=== PATIENT | female | born 1975 | race Caucasian/White ===

== ENCOUNTER 2017-10-29 09:15 | Emergency (ER) | payer BC ==
[2017-10-29] MEDS ORDERED: Sodium Chloride 0.9% 2.5 ML Syringe FLUSH PRN (09:17)
[2017-10-29] MEDS ORDERED: Sodium Chloride 0.9% 10 ML Syringe FLUSH PRN (09:17)
--- NOTE | 2017-10-29 09:26 | EDM.PDOC ---
ED HPI GENERAL MEDICAL PROBLEM - General Chief Complaint: Headache Stated Complaint: NUMBNESS, HEADAACHE Time Seen by Provider: 10/29/17 09:17 - History of Present Illness INITIAL COMMENTS - FREE TEXT/NARRATIVE: HISTORY AND PHYSICAL: History of present illness: The patient is a 41-year-old female with no stated medical history and has had a bilateral tubal ligation and presents with 2 complaints; first she woke up at approximately 7:45a with pins and needles like sensation with pain in her left hand extending up to the mid humerus area. There is no weakness associated with it but there was discrete pain and feeling like she slept on it. That symptom has persisted until present time at 9:20 AM with this dictation. Patient has no other extremity complaints and has had no trauma to the area. The patient says that the sensation stops about mid humerus and does not extend the shoulder. She also says that when she woke this morning her tongue felt somewhat funny but that has gone away. Patient has no chest pain palpitations nausea vomiting or any history of any trauma or falls. She has no neck or back pain. The patient also tells me that her second complaint is that she has had headaches every other day for the last 2 weeks mostly in the occipital area and behind her eyes. She has just started taking Excedrin [id number] the last 4 days and that has helped with the headaches. She was told in the past and that she had a bony spur in her neck that might impinge on a nerve but that was on the right side. Patient has no stated history of hypertension and prior to these events of this morning was eating and drinking normally. The patient said that she came to the ER mostly for the pins and needles pain in the left hand and arm. She has no symptoms in her face or left lower extremity and she has no speech changes. She rates her headache pain as a 7/10 and to take an Excedrin this morning. She has a history of a bilateral tubal ligation Review of systems: As per history of present illness and below otherwise all systems reviewed and negative. Past medical history: As per history of present illness and as reviewed below otherwise noncontributory. Surgical history: As per history of present illness and as reviewed below otherwise noncontributory. Social history: No reported history of drug or alcohol abuse. Family history: As per history of present illness and as reviewed below otherwise noncontributory. Physical exam: General: Well-developed well-nourished female who is nontoxic and speaking clearly and easily in ED. Vital signs have been reviewed by me. Patient is somewhat fidgety in the bed but cooperative and interactive. HEENT: Atraumatic, normocephalic, pupils reactive, negative for conjunctival pallor or scleral icterus, mucous membranes moist, throat clear, neck supple, nontender, trachea midline. There is no cervical adenopathy or nuchal rigidity and no midline step-offs in his defects of the cervical spine Lungs: Clear to auscultation, breath sounds equal bilaterally, chest nontender. Heart: S1S2, regular, negative for clicks, rubs, or JVD. Abdomen: Soft, nondistended, nontender. Negative for masses or hepatosplenomegaly. Negative for costovertebral tenderness. Pelvis: Stable nontender. Genitourinary: Deferred. Rectal: Deferred. Extremities: Atraumatic, negative for cords or calf pain. Neurovascular unremarkable. Full range of motion without defects or deficits vascular in the left upper extremity is intact with palpable radial and ulnar pulses as well as an axillary pulse. Moe's test is normal in the left hand and there is good cap refill at rest. There is no gross swelling of the left hand or upper extremity and compartments are soft and nontender. Neuro: Awake, alert, oriented. Cranial nerves II through XII unremarkable. Cerebellum unremarkable. Motor and sensory unremarkable throughout. Exam nonfocal. There is no drift in any extremities dorsi and plantar flexion is intact 5/5 inclusive of the great toe and there is no left lower extremity weakness appreciated. There are no facial changes and speech is intact. NIHSS=0 Diagnostics: EKG Accu-Chek CBC CMP troponin TSH INR CT scan of the head UA UDS Therapeutics: IV O2 monitor Ativan Dilaudid Please note that the patient says that she has bad anxiety and claustrophobia and requested meds for the CAT scan. She was given 1 mg of Ativan and currently in CT scan she is also having more anxiety so she will be given a second milligram of Ativan. CT was unable to perform the CAT scan of the head initially because the patient was rolling around the table and would not stay still despite the 2 mg of Ativan. Patient was returned to the ED and initially would not get out of the wheelchair and when we assisted her out of the wheelchair she proceeded to place herself onto the floor and needed to be physically lifted to the bed. She is currently rolling around the bed and prefers to lay in the prone position in a Ashleigh pose position and is yelling and moaning. The significant other at bedside says that for the past few nights when she has had her headache she has been acting this way moaning and laying on the floor in a Ashleigh pose position as she had told him that this was the position that made her head hurt the least. She is telling me that her head is very painful and her arm is not as painful at this time. She states that she understands what I am saying to her but she seems very inconsolable with moaning crying and continuous motor movements. We will give her Dilaudid for pain and attempt to get her to CAT scan. Significant other at bedside is aware of this area patient is moving all extremities without defects or deficits and has no new neurologic changes. Patient does not have any history of any headache syndromes. 1121: Patient continues to rest comfortably with stable vitals and maintaining her airway. She is sleeping and has not moaning yelling or crying. CT scan was read as normal except for a small amount of left maxillary sinus fluid. We have sent a UA and a drug screen which I will follow those testing results. In light of the fact that the etiology of the patient's severe head pain and left upper extremity symptoms are unclear and we do not have the capability to do MRI/MRA and we do not have a neurologist available is recommended that we transfer the patient and I discussed the case with Rubi Figueroa NP at [facility] in [place] as their physicians were busy with another patient. She has accepted patient for transfer. The has stepped away from the ER and when he returns we will inform him of the need for the transfer and we will arrange ground transport. Critical care time excluding procedures: 31min Impression: Headache syndrome etiology unclear with left upper extremity paresthesia and pain etiology unclear Definitive disposition and diagnosis as appropriate pending reevaluation and review of above. Headache Pain Score (Numeric/FACES): 8 - Related Data Allergies Allergy/AdvReac Type Severity Reaction Status Date / Time No Known Allergies Allergy Verified 10/29/17 09:16 Home Meds: Home Meds . [No Known Home Meds] 10/29/17 [History] ED ROS GENERAL - Review of Systems Review Of Systems: ROS reveals no pertinent complaints other than HPI. ED EXAM, GENERAL - Physical Exam Exam: See Below (See dictation) Course - Vital Signs Last Recorded V/S: Last Vital Signs Temp 36.7 C 10/29/17 09:17 Pulse 82 10/29/17 09:17 Resp 20 10/29/17 09:17 BP 126/76 10/29/17 09:17 Pulse Ox 97 10/29/17 09:27 - Orders/Labs/Meds Orders: Active Orders 24 hr Category Date Time Status Blood Glucose Check, Bedside [RC] ONETIME Care 10/29/17 09:18 Active Cardiac Monitoring [RC] . DIRECTED Care 10/29/17 09:17 Active Communication Order [RC] STAT Care 10/29/17 09:17 Active EKG Documentation Completion [RC] STAT Care 10/29/17 09:17 Active Oxygen Therapy, ED [RC] ASDIRECTED Care 10/29/17 09:17 Active Pulse Oximetry [RC] ASDIRECTED Care 10/29/17 09:17 Active Chest 1V Frontal [CR] Stat Exams 10/29/17 09:18 Taken Head wo Cont [CT] Stat Exams 10/29/17 09:19 Taken DRUG SCREEN, URINE [URCHEM] Stat Lab 10/29/17 11:14 Ordered UA W/MICROSCOPIC [URIN] Stat Lab 10/29/17 11:14 Ordered Sodium Chloride 0.9% [Saline Flush] Med 10/29/17 09:17 Active 10 ml FLUSH ASDIRECTED PRN Sodium Chloride 0.9% [Saline Flush] Med 10/29/17 09:17 Active 2.5 ml FLUSH ASDIRECTED PRN Saline Lock Insert [OM.PC] Stat Oth 10/29/17 09:17 Ordered Medication Orders Sodium Chloride (Saline Flush) 10 ml FLUSH ASDIRECTED PRN PRN Reason: Keep Vein Open Last Admin: 10/29/17 09:44 Dose: 10 ml Sodium Chloride (Saline Flush) 2.5 ml FLUSH ASDIRECTED PRN PRN Reason: Keep Vein Open Last Admin: 10/29/17 09:44 Dose: 2.5 ml Labs: Laboratory Tests 02/12/1110/29/17 10/29/17 Range/Units 09:18 09:27 09:27 WBC 7.57 (4.0-11.0) K/uL RBC 4.75 (4.30-5.90) M/uL Hgb 15.7 (12.0-16.0) g/dL Hct 43.8 (36.0-46.0) % MCV 92.2 (80.0-98.0) fL MCH 33.1 H (27.0-32.0) pg MCHC 35.8 (31.0-37.0) g/dL RDW Std Deviation 43.0 (28.0-62.0) fl RDW Coeff of Shant 13 (11.0-15.0) % Plt Count 214 (150-400) K/uL MPV 9.80 (7.40-12.00) fL Neut % (Auto) 65.1 (48.0-80.0) % Lymph % (Auto) 26.2 (16.0-40.0) % [place] % (Auto) 7.9 (0.0-15.0) % Eos % (Auto) 0.5 (0.0-7.0) % Baso % (Auto) 0.3 (0.0-1.5) % Neut # (Auto) 4.9 (1.4-5.7) K/uL Lymph # (Auto) 2.0 (0.6-2.4) K/uL [place] # (Auto) 0.6 (0.0-0.8) K/uL Eos # (Auto) 0.0 (0.0-0.7) K/uL Baso # (Auto) 0.0 (0.0-0.1) K/uL Nucleated RBC % 0.0 /100WBC Nucleated RBCs # 0 K/uL INR 0.92 Sodium 133 L (136-146) mmol/L Potassium 3.6 (3.5-5.1) mmol/L Chloride 105 (98-110) mmol/L Carbon Dioxide 18 L (21-31) mmol/L BUN 9 (6.0-23.0) mg/dL Creatinine 0.7 (0.6-1.5) mg/dL Est Cr Clr Drug Dosing 116.68 mL/min Estimated GFR (MDRD) > 60.0 ml/min Glucose 106 (60-110) mg/dL Calcium 9.5 (8.8-10.8) mg/dL Total Bilirubin 0.4 (0.1-1.5) mg/dL AST 13 (5-40) IU/L ALT 12 (8-54) IU/L Alkaline Phosphatase 82 (40-150) Troponin I < 0.10 (0.0-0.29) NG/ML Total Protein 6.8 (6.0-8.0) g/dL Albumin 4.1 (3.5-5.0) g/dL Globulin 2.7 (2.0-3.5) g/dL Albumin/Globulin Ratio 1.5 (1.3-2.8) TSH 3rd Generation 2.12 (0.47-5.0) uIU/mL Meds: Medications Generic Name Dose Route Start Last Admin Trade Name Freq PRN Reason Stop Dose Admin Sodium Chloride 10 ml 10/29/17 09:17 10/29/17 09:44 Saline Flush FLUSH 10 ml ASDIRECTED PRN Administration Keep Vein Open Sodium Chloride 2.5 ml 10/29/17 09:17 10/29/17 09:44 Saline Flush FLUSH 2.5 ml ASDIRECTED PRN Administration Keep Vein Open Discontinued Medications Generic Name Dose Route Start Last Admin Trade Name Freq PRN Reason Stop Dose Admin Hydromorphone HCl 1 mg 10/29/17 10:22 10/29/17 10:34 Dilaudid IVPUSH 10/29/17 10:23 Not Given ONETIME ONE Hydromorphone HCl 1 mg 10/29/17 10:27 10/29/17 10:31 Dilaudid IV 10/29/17 10:28 1 mg ONETIME ONE Administration Hydromorphone HCl Confirm 10/29/17 10:27 10/29/17 10:34 Dilaudid Administered 10/29/17 10:28 Not Given Dose 1 mg .ROUTE .STK-MED ONE Lorazepam 1 mg 10/29/17 09:39 10/29/17 09:44 Ativan IVPUSH 10/29/17 09:40 1 mg ONETIME ONE Administration Lorazepam Confirm 10/29/17 09:41 10/29/17 10:34 Ativan Administered 10/29/17 09:42 Not Given Dose 2 mg .ROUTE .STK-MED ONE Lorazepam 1 mg 10/29/17 10:08 10/29/17 10:41 Ativan IVPUSH 10/29/17 10:09 1 mg ONETIME ONE Administration Departure - Departure Time of Disposition: 11:31 Disposition: DC/Tfer to Acute Hospital 02 Condition: Good Clinical Impression: Headache syndrome, Paresthesia and pain of left extremity - Discharge Information Referrals: PCP,None [Primary Care Provider] - Forms: ED Department Discharge - My Orders Last 24 Hours: My Active Orders 10/29/17 09:17 Cardiac Monitoring [RC] . DIRECTED Communication Order [RC] STAT EKG Documentation Completion [RC] STAT Oxygen Therapy, ED [RC] ASDIRECTED Pulse Oximetry [RC] ASDIRECTED Sodium Chloride 0.9% [Saline Flush] 10 ml FLUSH ASDIRECTED PRN Sodium Chloride 0.9% [Saline Flush] 2.5 ml FLUSH ASDIRECTED PRN Saline Lock Insert [OM.PC] Stat 10/29/17 09:18 Blood Glucose Check, Bedside [RC] ONETIME Chest 1V Frontal [CR] Stat 10/29/17 09:19 Head wo Cont [CT] Stat 10/29/17 11:14 DRUG SCREEN, URINE [URCHEM] Stat UA W/MICROSCOPIC [URIN] Stat - Assessment/Plan Last 24 Hours: My Active Orders 10/29/17 09:17 Cardiac Monitoring [RC] . DIRECTED Communication Order [RC] STAT EKG Documentation Completion [RC] STAT Oxygen Therapy, ED [RC] ASDIRECTED Pulse Oximetry [RC] ASDIRECTED Sodium Chloride 0.9% [Saline Flush] 10 ml FLUSH ASDIRECTED PRN Sodium Chloride 0.9% [Saline Flush] 2.5 ml FLUSH ASDIRECTED PRN Saline Lock Insert [OM.PC] Stat 10/29/17 09:18 Blood Glucose Check, Bedside [RC] ONETIME Chest 1V Frontal [CR] Stat 10/29/17 09:19 Head wo Cont [CT] Stat 10/29/17 11:14 DRUG SCREEN, URINE [URCHEM] Stat UA W/MICROSCOPIC [URIN] Stat
[2017-10-29] MEDS ORDERED: LORazepam 2 MG/ML SDV IVPUSH ONE ×2 (09:39→10:08)
[2017-10-29] MEDS ORDERED: LORazepam 2 MG/ML SDV ONE (09:41)
[2017-10-29 09:55] LABS: CHLORIDE,CL 105 mmol/L (98-110); SODIUM,NA 133 mmol/L (136-146)
[2017-10-29] MEDS ORDERED: HYDROmorphone 2 MG/ML Syringe IVPUSH ONE (10:22)
[2017-10-29] MEDS ORDERED: HYDROmorphone 1 MG/ML Syringe ONE (10:27)
[2017-10-29] MEDS ORDERED: HYDROmorphone 1 MG/ML Syringe IV ONE (10:27)
[2017-10-29] MEDS ORDERED: Dextrose 5%-0.45% NaCl 1,000 ML IV SCH (11:45)
--- NOTE | 2017-10-31 14:05 | CT ---
EXAM DATE: 10/29/17 PATIENT'S AGE: 41 Patient: ALEENA FAJARDO Facility: [place], [place] Site . Site : 1975 Study: CT Head [id number]/3/2018 11:02:13 AM Ordering Physician: Doctor Frances Final Report: INDICATION: Severe pain. TECHNIQUE: CT head without IV contrast. FINDINGS: Small amount of loculated fluid and mucosal thickening in the left maxillary sinus. Tiny polyp or retention cyst in the right maxillary sinus. No intracranial hemorrhage edema, or mass effect. Remainder negative. IMPRESSION: 1. No acute intracranial disease. 2. Minimal inflammatory changes in the maxillary sinuses greater on the left. Please note that all CT scans at this facility use dose modulation, iterative reconstruction, and/or weight-based dosing when appropriate to reduce radiation dose to as low as reasonably achievable. Dictated by Sj Narayanan MD @ Oct 29 2017 11:04AM (Electronic Signature) Report Signed by Proxy. JOSE LUIS
--- NOTE | 2017-10-31 14:06 | CR ---
EXAM DATE: 10/29/17 PATIENT'S AGE: 41 Patient: ALEENA FAJARDO Facility: [place], [place] Site . Site : 1975 Study: XRay Chest [id number]/3/2018 11:16:40 AM Ordering Physician: Doctor Frances Final Report: INDICATION: Chest pain; shortness of breath. COMPARISON: None. TECHNIQUE: Portable AP chest. FINDINGS: Normal size cardiac silhouette. Infiltrates right lower lobe. No pneumothorax or pleural effusion. IMPRESSION: Infiltrates right lower lobe. Dictated by Whitney Smith MD @ Oct 29 2017 11:22AM (Electronic Signature) Report Signed by Proxy. JOSE LUIS
== END 2017-10-29 13:00 ==
LOC: MW.ED 09:15
DX: R20.2 Paresthesia of skin (principal); R51 Headache
CPT/HCPCS: 36415; 70450; 71045; 80053; 80305; 81001; 82962; 84443; 84484; 85025; 85610; 93005; 96361; 96374; 96375; 99285; J1170; J2060; J7042

== ENCOUNTER 2018-10-04 06:29 | Day surgery (SDC) | payer BC ==
--- NOTE | 2018-10-04 07:01 | PCM.PREANE ---
Preanesthetic Assessment - Procedure Proposed Procedure: plantar fasciectomy on the LEFT - Anesthesia/Transfusion/Family Hx Anesthesia History: Prior Anesthesia Without Reaction (T+A, back surgery-- laminectomy, Tubal ligation ==without anethesia issues) Family History of Anesthesia Reaction: No Transfusion History: No Prior Transfusion(s) - Review of Systems General: No Symptoms Pulmonary: Other (smoker--quit smoking for 3 months now. History sinusitis) Cardiovascular: No Symptoms Gastrointestinal: No Symptoms Neurological: Other (depression, moderately severe anxiety disorder (took her xanax this morning), migraines, needle phobia, headache syndrome with pain to left arm) Other: Reports: Thyroid Problems (hypothyroid--no meds) - Physical Assessment NPO Status Date: 10/04/18 NPO Status Time: 00:00 (took xanax around 0600 hrs) Pulse: 69 O2 Sat by Pulse Oximetry: 100 Respiratory Rate: 16 Blood Pressure: 103/62 Temperature: 36.9 C Height: 1.78 m Weight: 88.451 kg ASA Class: 3 Mental Status: Alert & Oriented x3 Lungs: Clear to Auscultation, Normal Respiratory Effort Cardiovascular: Regular Rate, Regular Rhythm - Lab Values: cbc and cmp 08/31/18==wnl waiting on HCG:: - Imaging/EKG Impressions: cxr and ekg 08/31/[address] 12/11 = wnl - Allergies Allergies/Adverse Reactions: Allergies Allergy/AdvReac Type Severity Reaction Status Date / Time No Known Allergies Allergy Verified 09/29/18 10:31 - Blood Blood Available: No Product(s) Available: None - Acknowledgements Anesthesia Type Planned: General Anesthesia (GA best choice given her anxiety disorder. Patient and agree. Consent signed. All questions answered.) Pt an Appropriate Candidate for the Planned Anesthesia: Yes Alternatives and Risks of Anesthesia Discussed w Pt/Guardian: Yes Pt/Guardian Understands and Agrees with Anesthesia Plan: Yes PreAnesthesia Questionnaire - Past Health History Medical/Surgical History: Denies Medical/Surgical History HEENT History: Reports: Other (See Below) Other HEENT History: wears glasses Cardiovascular History: Reports: None Respiratory History: Reports: None Gastrointestinal History: Reports: None Genitourinary History: Reports: None HOSPICE CASE MANAGER History: Reports: None Musculoskeletal History: Reports: None Neurological History: Reports: Migraines Psychiatric History: Reports: Anxiety, Other (See Below) Other Psychiatric History: needle phobia Endocrine/Metabolic History: Reports: Hypothyroidism Other Endocrine/Metabolic History: does not take medication Hematologic History: Reports: None Immunologic History: Reports: None Oncologic (Cancer) History: Reports: None Dermatologic History: Reports: None - Past Surgical History Head Surgeries/Procedures: Reports: None HEENT Surgical History: Reports: Tonsillectomy Neurological Surgical History: Reports: Laminectomy, Lumbar Spine - SUBSTANCE USE Smoking Status *Q: Former Smoker Tobacco Use Within Last Twelve Months: No Recreational Drug Use History: No - HOME MEDS Home Medications: Home Meds ALPRAZolam [Xanax] 1 mg PO ASDIRECTED PRN 09/29/18 [History] Acetaminophen/Butalbital/Caff [Fioricet 325-50-40 MG] 1 tab PO ASDIRECTED PRN [History] Vortioxetine Hydrobromide [Trintellix] 10 mg PO DAILY 09/29/18 [History] - CURRENT (IN HOUSE) MEDS Current Meds: Current Medications Cefazolin Sodium/Dextrose 2 gm (/ Premix) 50 mls @ 100 mls/hr IV ONETIME ONE Stop: 10/04/18 08:29 Lactated Ringer's (Ringers, Lactated) 1,000 mls @ 125 mls/hr IV ASDIRECTED SAM
[2018-10-04] MEDS ORDERED: Midazolam 1 MG/ML 2 ML SDV ONE (07:44)
[2018-10-04] MEDS ORDERED: Lidocaine 2% 5 ML SDV ONE (07:44)
[2018-10-04] MEDS ORDERED: fentaNYL 100 MCG/2 ML SDV ONE (07:44)
[2018-10-04] MEDS ORDERED: Bupivacaine 0.5% 10 ML SDV ONE (07:45)
[2018-10-04] MEDS ORDERED: Propofol 200 MG/20 ML SDV ONE (07:45)
[2018-10-04] MEDS ORDERED: Rocuronium 10 MG/ML 10 ML Syringe ONE (07:46)
[2018-10-04] MEDS ORDERED: ceFAZolin 2 GM in Premix Bag 1 BAG IV ONE (08:00)
[2018-10-04] MEDS ORDERED: Lactated Ringers 1,000 ML IV SCH (08:00)
[2018-10-04] MEDS ORDERED: Bupivacaine 0.25%/EPINEPHrine 1:200,000 10 ML SDV ONE (08:26)
[2018-10-04] MEDS ORDERED: Neostigmine Methylsulfate 1 MG/ML 5 ML Syringe ONE (09:02)
[2018-10-04] MEDS ORDERED: Glycopyrrolate 0.2 MG/ML SDV ONE (09:04)
[2018-10-04] MEDS ORDERED: Ondansetron 4 MG/2 ML SDV ONE (09:14)
[2018-10-04] MEDS ORDERED: HYDROmorphone 2 MG/ML SDV IVPUSH ONE (09:29)
--- NOTE | 2018-10-04 09:42 | PCM.OPNOTE ---
- General Post-Op/Procedure Note Date of Surgery/Procedure: 10/04/18 Operative Procedure(s): endoscopic plantar fasciotomy left foot Findings: consistent with diagnosis Pre Op Diagnosis: plantar fasciitis left foot Post-Op Diagnosis: plantar fasciitis left foot Anesthesia Technique: General LMA Primary Surgeon: Chu Carlisle Pathology: none EBL in mLs: 2 Condition: Good Free Text/Narrative:: materials: 4-0 prolene injectables: 5 ml 0.25% marcaine with epinephrine, 5 ml 0.5% marcaine
[2018-10-04] MEDS: fentaNYL 100 MCG/2 ML SDV IVPUSH PRN ×2 (09:43→09:55)
[2018-10-04] MEDS ORDERED: Acetaminophen 1,000 MG in Premix Bag 1 BAG IV ONE (09:50)
--- NOTE | 2018-10-04 10:02 | PCM.POSTAN ---
POST ANESTHESIA ASSESSMENT - MENTAL STATUS Mental Status: Alert, Oriented - RESPIRATORY Respiratory Status: Respiratory Rate WNL, Airway Patent, O2 Saturation Stable - CARDIOVASCULAR CV Status: Pulse Rate WNL, Blood Pressure Stable - GASTROINTESTINAL GI Status: No Symptoms - POST OP HYDRATION Hydration Status: Adequate & Stable
[2018-10-04] MEDS ORDERED: Acetaminophen/HYDROcodone 325-5 MG Tab PO PRN (10:20)
[2018-10-04] MEDS ORDERED: oxyCODONE 5 MG Tab PO ONE (10:25)
--- NOTE | 2018-10-04 10:39 | PN ---
PATIENT IDENTIFICATION: The patient is a 42-year-old female. PLANNED PROCEDURE: Endoscopic plantar fasciotomy of the left foot. ALLERGIES: No known drug allergies. CURRENT MEDICATIONS: 1. Alprazolam 1 mg oral tablet. Take 1 tablet 3 times daily as needed. 2. Dsojsazqlf-WYZZ-acapjtsx 50-300-40 mg oral capsule. Take 2 capsules by mouth twice a day as needed for migraine. 3. Cyclobenzaprine hydrochloride 10 mg oral tablet. Take 1 tablet by mouth 3 times a day as needed for muscle spasm or pain. 4. Ibuprofen 800 mg oral tablet. Take 1 tablet by mouth 3 times daily. ACTIVE PROBLEMS: Plantar fasciitis. PAST MEDICAL HISTORY: History of hypothyroidism and history of migraines. PAST SURGICAL HISTORY: History of back surgery, history of neck surgery, and history of tonsillectomy. LABORATORY DATA: Sodium 141, potassium 4.1, chloride 105, CO2 of 25.4, random glucose 109, BUN 16, creatinine 0.7, calcium 9.1, albumin 3.8, globulin 3.4. White blood cells 9.43, red blood cells 4.51, hemoglobin 14.4, hematocrit 41.3, platelets 218. DIAGNOSTIC DATA: EKG did not show any medically significant cardiac abnormality. PLAN: The patient was cleared for surgery by Dr. Dewayne Bennett and Dr. Arturo Egan. An addendum extending this clearance was signed by Dr. Dewayne Bennett on September 29, 2018. The patient presents for endoscopic plantar fasciotomy to treat plantar fasciitis of the left foot today. All patient's questions were answered. No guarantees were expressed or implied. The patient's consent has been signed with a witness present and placed in the patient chart. YASMINE RAM /[id number]
--- NOTE | 2018-10-04 11:50 | PCM48HPAN ---
Post Anesthesia Note - EVALUATION WITHIN 48HRS OF ANESTHETIC Vital Signs in Normal Range: Yes Patient Participated in Evaluation: Yes Respiratory Function Stable: Yes Airway Patent: Yes Cardiovascular Function Stable: Yes Hydration Status Stable: Yes Pain Control Satisfactory: Yes Nausea and Vomiting Control Satisfactory: Yes Mental Status Recovered: Yes Pulse Rate: 69 Resp Rate: 16 Temperature: 36.9 C Blood Pressure: 103/62
--- NOTE | 2018-10-04 14:06 | OR ---
SURGEON: Chu Carlisle DPM DATE OF PROCEDURE: 10/04/2018 PREOPERATIVE DIAGNOSIS: Plantar fasciitis, left foot. OPERATIVE PROCEDURE: Endoscopic plantar fasciotomy, left foot. PATHOLOGY: None. ANESTHESIA: General. HEMOSTASIS: Above ankle pneumatic tourniquet inflated to a pressure of 250 mmHg after an Esmarch bandage exsanguination of the left foot. ESTIMATED BLOOD LOSS: 2 mL. MATERIALS: 4-0 Prolene. INJECTABLES: 5 mL of 0.25% Marcaine with epinephrine, and 5 mL of 0.5% Marcaine plain. FINDINGS: Consistent with diagnosis. COMPLICATIONS: None seen. CONDITION: The patient tolerated the procedure and anesthesia well with vital signs stable and neurovascular status intact to all digits of the left foot. JUSTIFICATION FOR PROCEDURE: The patient has painful plantar fasciitis of the left foot and has failed conservative treatments, which included stretching, steroid injection, and custom-made orthotics. All of these have failed to give her satisfactory relief of her pain symptoms and the patient has elected for surgical treatment and consented for the surgery today on the left foot. No guarantees expressed or implied. PROCEDURE IN DETAIL: Endoscopic plantar fasciotomy of left foot. The patient was brought to the operating room and placed on the operating table. Anesthesia was induced and an aseptic scrub and drape was performed in the usual manner about the patient's left lower extremity. The ankle tourniquet was affixed above the malleoli of the left ankle. The foot was marked for the ideal location for the stab incision on the medial aspect and an Esmarch bandage exsanguination was performed and the tourniquet was inflated to pressure of 250 mmHg. Esmarch bandage was then released and the stab incision was made 1 to 3 mm distal to the medial calcaneal tubercle and approximately 17 mm superior to the inferior skin line of the heel of the left foot. Blunt dissection with mosquito hemostat was used to separate the layers and access the medial aspect of the medial band of the plantar fascia. A fascial elevator from the [place] endoscopic plantar fasciotomy kit was used at this point inserting it through the incision from medial to lateral undermining and tenting the plantar fascia while the toes were dorsiflexed to tighten the plantar fascia and make it easier to palpate with instrumentation. The fascial elevator was advanced laterally until it tented the skin on the lateral aspect of the heel, it was then withdrawn and an obturator and cannula were inserted from medial to lateral through the same incision. The skin was again tented and a stab incision was made on the lateral aspect to allow the obturator and cannula to be advanced through the foot. The obturator was then withdrawn leaving the cannula in place. Three cotton tip applicators were inserted from medial to lateral to clean out the inside portion of the cannula, which was slotted, also part of the [place] endoscopic plantar fasciotomy kit. The slot was turned to face the superior aspect of nail insertion and a 4 mm 30-degree scope was inserted on the medial aspect into the cannula to visualize the anatomy through the slotted portion of the cannula. The plantar fascia was clearly visualized and a hook knife was inserted on the lateral side, rotated away from the slot in order to protect anatomy as it was advanced and was advanced medially and then rotated upwards and placed through the slot under visualization on the monitor, grasping the medial edge of the plantar fascia band. It was then retracted from medial to lateral using the markings within the slotted cannula and cutting the medial 1/3 of the plantar fascia band. The markings were used as a guide. The slotted cannula was then retracted a bit medially to visualize and ensure full resection of the most medial portion of the band, which was also done. A triangle knife was used after the hook knife in the same fashion, releasing the remnants of the plantar fascia. Additional cotton tip applicators were then advanced to slotted cannula cleaning it again with focusing and verifying full resection of the medial 1/3rd of the plantar fascia band. The cannula was then removed and 5 mL of 0.25% Marcaine with epinephrine was injected, both through the medial and lateral incision sites, 3 mm for the medial and approximately 2 mL through the lateral incision site. A 5 mL of 0.5% Marcaine plain was then utilized in the same fashion to provide further local anesthesia. The skin was reapproximated with 4- 0 Prolene suture. Single [id number] suture was used on each side. The area was covered with Betadine-soaked Xeroform gauze on those sides, and this was covered by 4 x 4 fluff gauze, Kerlix roll, and then secured with an Richar bandage. Written and verbal instructions have been provided to the patient regarding care and followup with me. The patient will be seen in my office tomorrow. The patient has my phone number and is instructed to call me if she has any concerns at any time. YASMINE RAM /[id number]
== END 2018-10-04 11:45 | disposition home or self-care (01) ==
LOC: MW.SDS 06:29
PROVIDERS: ATTEND Podiatrist Foot & Ankle Surgery
DX: M72.2 Plantar fascial fibromatosis (principal); F41.9 Anxiety disorder, unspecified; G43.909 Migraine, unspecified, not intractable, without status migrainosus; E03.9 Hypothyroidism, unspecified; Z87.891 Personal history of nicotine dependence
CPT/HCPCS: 29893; 36415; 84703; A9270; J0131; J2250; J2405; J2704; J3010; J3490; J7120